=== PATIENT | female | born 2000 | race African-American/Black ===

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

== ENCOUNTER 2024-01-30 13:03 | Emergency (ER) | payer MEDICAID ==
[~2024-01-30] VITALS: Ht 167.6 cm; Wt 65.0 kg
[2024-01-30 13:07] VITALS: O2SAT 99
[2024-01-30 14:17] VITALS: BP 126/67; PULSE 86; RESP 20; TEMP 97.9
[2024-01-30] MEDS: IBUPROFEN 600MG TABLET PO ONE (14:17)
[2024-01-30] MEDS: ACETAMINOPHEN 325MG TABLET PO ONE (14:17)
== END 2024-01-30 18:01 | disposition left against medical advice (07) ==
LOC: ER 13:03
DX: M25.559 Pain in unspecified hip (principal)
CPT/HCPCS: 73130; 81025